=== PATIENT | male | born 1990 | race Caucasian/White ===

== ENCOUNTER 2021-05-25 17:40 | Emergency (ER) | payer OTHER ==
[2021-05-25 17:45] VITALS: BP 114/62; PULSE 63; TEMP 98; BMI 26.6
[2021-05-25] MEDS ORDERED: ACETAMINOPHEN 325 MG TABLET (FP) PO ONE (18:37)
[2021-05-25] MEDS ORDERED: CYCLOBENZAPRINE HCL 10 MG TABLET (FP) PO ONE (18:37)
[2021-05-25] MEDS ORDERED: CYCLOBENZAPRINE HCL 10 MG TABLET (FP) ONE (18:38)
[2021-05-25] MEDS ORDERED: ACETAMINOPHEN 325 MG TABLET (FP) ONE (18:39)
== END 2021-05-25 20:42 | disposition home or self-care (01) ==
LOC: FER 17:40
DX: M54.2 Cervicalgia (principal); M54.5 Low back pain; V49.40XA Driver injured in collision with unspecified motor vehicles in traffic accident, initial encounter
CPT/HCPCS: 70450-TC; 72125-TC; 72128-TC; 99285-25